=== PATIENT | male | born 1995 | race Caucasian/White ===

== ENCOUNTER → 2016-12-01 | Outpatient (CLI) | payer BC | LOC: BHSO 10:53 | DX: F41.1 Generalized anxiety disorder (principal) | CPT/HCPCS: 90791-AI ==

== ENCOUNTER → 2017-01-05 | Outpatient (CLI) | payer BC | LOC: BHSO 13:35 | DX: F41.1 Generalized anxiety disorder (principal) ==

== ENCOUNTER → 2017-03-01 | Outpatient (CLI) | payer BC | LOC: BHSO 14:05 | DX: F31.81 Bipolar II disorder (principal) ==

== ENCOUNTER → 2017-05-24 | Outpatient (CLI) | payer BC | LOC: BHSO 16:13 | DX: F41.1 Generalized anxiety disorder (principal) ==

== ENCOUNTER → 2017-06-28 | Outpatient (CLI) | payer BC | LOC: BHSO 15:40 | DX: F31.73 Bipolar disorder, in partial remission, most recent episode manic (principal) ==

== ENCOUNTER → 2017-09-11 | Outpatient (CLI) | payer BC | LOC: BHSO 10:40 | DX: F41.1 Generalized anxiety disorder (principal) ==